=== PATIENT | female | born 1985 | race African-American/Black ===

== ENCOUNTER 2017-11-22 11:05 | Inpatient (IN) | payer SELFPAY ==
[2017-11-22] MEDS ORDERED: ELECTROLYTE-148 SOLN 500 ML IV ONE ×2 (12:15→12:55)
[2017-11-22] MEDS ORDERED: SODIUM CHLORIDE 100 ML IVPB ONE (12:35)
[2017-11-22] MEDS ORDERED: AMPICILLIN SODIUM 2 GM VIAL ONE (12:35)
[2017-11-22] MEDS ORDERED: AMPICILLIN - 2 GM in SODIUM CHLORIDE 100 ML IVPB ONE (12:40)
[2017-11-22] MEDS ORDERED: CITRIC ACID/SODIUM CITRATE 30 ML UNIT-DOSE CUP PO ONE (12:55)
[2017-11-22] MEDS ORDERED: ELECTROLYTE-148 SOLN 1,000 ML IV SCH (13:00)
[2017-11-22 13:02] LABS: BASO % 0.5 % (0-2.0); EOS % 2.7 % (0-4.5); HEMATOCRIT 31.6 % (32.4-45.2); HEMOGLOBIN 10.8 GM/dL (10.7-15.3); LYMPH % 14.4 % (8-40); MCH 31.5 pg (25.7-33.7); MCHC 34.1 g/dl (32.0-36.0); MEAN CELL VOLUME 92.3 fl (80-96); NEUT % 74.4 % (42.8-82.8); PLATELET COUNT 169 K/MM3 (134-434); RBC 3.42 M/mm3 (3.60-5.2); RDW 13.4 % (11.6-15.6); WHITE BLOOD COUNT 7.9 K/mm3 (4.0-10.0)
--- NOTE | 2017-11-22 13:11 | HP ---
Past Medical History - Primary Care Physician PCP:: Lyndsay Cruz - Admission Chief Complaint: 32 yrs , ectopic -1 , 36.2 weeks by sono admitted due to PROM since. 12.15 PM 11/22/17, onset LP since 9.30 AM. previous c/section x2 . uc did not stop after IV hydration. for repeat c/s History of Present Illness: PNC at , [facility] , non compliant only 3 visits in the clinic 06/22. 07/26 & 08/28 . panel 06/22/17 O Pos, hbsag neg, rubella pos, rpr nr, hiv nr, cf screen neg, sickle neg , Pap nilm , gc/ct neg pt had seen MFM at [facility], she was recommended 17, hydroxy progesterone inj , she did not take them . AFP test neg . 07/26/17 sono 19.4 weeks, small ut fibroid 2 cm, cx 2.5 cm afluid was normal sh presnted in l&D on 11/03/17 , IV hydration was given for threatened PTL h/o substance abuse .she stopped cocaine & started Heroin which she takes daily . 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 Weeks Gestation by Dates: 35.5 ...EDC by Dates: 12/22/17 ...EDC by Sono: 12/18/17 (36.2 weeks by sono ) Heme/Onc: Yes: Anemia (non compliant with iron & pnv) Infectious Disease: No: AIDS, STD's, Tuberculosis Psych: Yes: Addictions, Other (declines h/o) Endocrine: No: Hyperthyroidism, Hypothyroidism - Past Surgical History Past Surgical History: Yes: (06/17/2004, 11/01/10) Hx Myomectomy: No Hx Transabdominal Cerclage: No Additional Surgical History: h/o left salpingectomy for ectopic preegn [id number] - Smoking History Smoking history: Current every day smoker (2-3 cig/day) Have you smoked in the past 12 months: Yes - Alcohol/Substance Use Hx Alcohol Use: No History of Substance Use: reports: Cocaine (stopped 4 months ago,), Heroin ( started 3 months ago daily drug tox pos on 11/03/17) Home Medications - Allergies Allergies/Adverse Reactions: Allergies Allergy/AdvReac Type Severity Reaction Status Date / Time No Known Drug Allergies Allergy Verified 11/22/17 11:59 - Home Medications Home Medications: Ambulatory Orders Heroin 1 inhaler IH PRN 11/22/17 Physical Exam - Maternity Vital Signs: Vital Signs Temperature 98.4 F 11/22/17 12:10 Pulse Rate 82 11/22/17 12:10 Respiratory Rate 17 11/22/17 12:10 Blood Pressure 121/74 11/22/17 12:10 O2 Sat by Pulse Oximetry (%) Constitutional: Yes: Well Nourished, Severe Distress Eyes: Yes: WNL HENT: Yes: WNL, Normocephalic Neck: Yes: WNL Cardiovascular: Yes: WNL, Regular Rate and Rhythm Lungs: Clear to auscultation Breast(s): Yes: WNL - Abdominal Exam/OB Fundal Height: 36 Number of Fetuses: Single Presentation: Vertex Contractions: Yes Regularity: Regular (1-2 min) Intensity: Strong Monitor Mode: External Heart Rate (range): 140 Heart Rate Location: Midline Category: I Accelerations: Uniform Decelerations: None - Vaginal Exam/OB Vaginal Bleediing: No Speculum Exam: Yes Dilatation (cm): FT Effacement (%): 70 Amniotic Membrane Status: Ruptured Nitrazine Test: Positive Amniotic Fluid: Yes: Clear - Physical Exam Musculoskeletal: Yes: WNL Extremities: Yes: WNL. No: Calf Tenderness Integumentary: Yes: Incision (pfannensteil scar) Deep Tendon Reflex Grade: Normal +2 ...Motor Strength: WNL Psychiatric: Yes: WNL, Alert, Oriented, Agitated - Labs Lab Results: Laboratory Tests 11/22/17 11/22/17 12:47 12:47 WBC 7.9 RBC 3.42 L Hgb 10.8 Hct 31.6 L MCV 92.3 Plt Count 169 PT with INR 10.00 INR 0.88 PTT (Actin FS) 31.0 Laboratory Tests 11/22/17 11/22/17 11/22/17 12:47 12:47 12:47 PT with INR 10.00 INR 0.88 PTT (Actin FS) 31.0 Sodium Potassium Chloride Carbon Dioxide BUN Creatinine Random Glucose Calcium Total Bilirubin AST ALT Urine Protein Urine Ketones Urine Blood Ur Leukocyte Esterase Urine WBC (Auto) Urine RBC (Auto) Opiates Screen Cocaine Screen RPR Titer Nonreactive HIV 1&2 Antibody Screen Negative HIV P24 Antigen Negative 11/22/17 11/22/17 11/22/17 12:47 13:15 13:15 PT with INR INR PTT (Actin FS) Sodium 140 Potassium 4.0 Chloride 108 H Carbon Dioxide 24 BUN 11 Creatinine 0.6 Random Glucose 79 Calcium 8.1 L Total Bilirubin 0.3 AST 28 ALT 19 Urine Protein Negative Urine Ketones Negative Urine Blood 2+ H Ur Leukocyte Esterase Negative Urine WBC (Auto) 3 Urine RBC (Auto) 8 Opiates Screen Positive Cocaine Screen Positive RPR Titer HIV 1&2 Antibody Screen HIV P24 Antigen Hemorrhage Risk Assessment - Risk Factors Medium Risk Factors: Yes: Prior , uterine surgery,or multiple laparotomies Risk Score: 1 Risk Level: Medium Risk Problem List - Problems (1) with 36 completed weeks gestation Code(s): Z3A.36 - 36 WEEKS GESTATION OF (2) Previous section complicating Code(s): O34.219 - MATERNAL CARE FOR UNSP TYPE SCAR FROM PREVIOUS DEL (3) PROM with onset of labor within 24 hours of rupture Code(s): O42.00 - NELSY ROM, ONSET LABOR W/N 24 HR OF RUPT, UNSP WEEKS OF GEST (4) labor in third trimester Code(s): O60.03 - LABOR WITHOUT DELIVERY, THIRD TRIMESTER Qualifiers: Fetus number: single or unspecified fetus (5) Substance abuse affecting , antepartum Code(s): O99.320 - DRUG USE COMPLICATING , UNSPECIFIED TRIMESTER Assessment/Plan 32 yrs , ectopic -1, previous c/sction x2 presented in labor prom substance abuse & heroin , before that cocaine ,) cigrette smoking
[2017-11-22] MEDS ORDERED: OXYTOCIN 20 UNITS in 0.9% NS 40 UNIT/2,000 ML INFUS.BAG IV ONE (13:14)
[2017-11-22] MEDS ORDERED: ELECTROLYTE-148 SOLN 500 ML IV SCH (13:15)
[2017-11-22 13:19] LABS: INR 0.88 (0.83-1.09)
[2017-11-22 13:21] LABS: ALBUMIN 2.1 g/dl (3.4-5.0); ALK PHOS 137 U/L (45-117); ANION GAP 8 MMOL/L (8-16); BILIRUBIN,TOTAL 0.3 mg/dL (0.2-1.0); BLOOD UREA NITROGEN 11 mg/dL (7-18); CALCIUM 8.1 mg/dL (8.5-10.1); CHLORIDE 108 mmol/L (98-107); CO2 24 mmol/L (21-32); CREATININE 0.6 mg/dL (0.55-1.02); GLUCOSE,RANDOM 79 mg/dL (74-106); SGOT/AST 28 U/L (15-37); SGPT/ALT 19 U/L (13-61); SODIUM 140 mmol/L (136-145); TOT PROT 5.5 g/dl (6.4-8.2)
[2017-11-22] MEDS ORDERED: ONDANSETRON 4 MG/2 ML VIAL IVPUSH PRN (13:25)
[2017-11-22] MEDS ORDERED: morphine SULFATE/Preservative Free 0.5 MG/ML (1cc Syringe) EP ONE (13:25)
[2017-11-22] MEDS ORDERED: ceFAZolin SODIUM 1 GM VIAL ONE ×2 (13:42→22:47)
[2017-11-22] MEDS ORDERED: MIDAZOLAM HCL 2 MG/2 ML SINGLE DOSE VIAL ONE (13:51)
[2017-11-22] MEDS ORDERED: OXYTOCIN 10 UNITS/ML VIAL ONE (13:52)
[2017-11-22 14:25] LABS: ARTERIAL BLD GAS O2 SATURATION 22.8 % (90-98.9); ARTERIAL BLOOD GAS BASE EXCESS -0.1 meq/l (-2-2); ARTERIAL BLOOD GAS PO2 13.5 mmHg (80-100); ARTERIAL BLOOD GAS pH 7.32 (7.35-7.45)
[2017-11-22 14:31] LABS: URINE APPEARANCE CLEAR; URINE BILIRUBIN NEGATIVE (<2.0 mg/dL); URINE COLOR YELLOW; URINE GLUCOSE (UA) NEGATIVE (NEGATIVE); URINE KETONE NEGATIVE (NEGATIVE); URINE LEUK ESTERASE NEGATIVE (NEGATIVE); URINE NITRITE NEGATIVE (NEGATIVE); URINE PROTEIN NEGATIVE (NEGATIVE); URINE UROBILINOGEN NEGATIVE mg/dL (0.2-1.0)
[2017-11-22 14:33] LABS: VENOUS PC02 45.8 mmHg (38-52); VENOUS PH 7.37 (7.32-7.42); VENOUS PO2 20.1 mmHg (28-48)
[2017-11-22 14:38] LABS: EPI CELLS RARE /HPF (FEW); URINE BACTERIA RARE /hpf (NONE SEEN); URINE MUCUS RARE
[2017-11-22 14:42] LABS: METHADONE, UR NEGATIVE ng/ml (CUTOFF=300); PHENCYCLIDINE,URINE NEGATIVE ng/ml (CUTOFF=25); URINE AMPHETAMINES NEGATIVE ng/ml (CUTOFF=500); URINE BARBITURATES NEGATIVE ng/ml (CUTOFF=200); URINE BENZODIAZEPINES NEGATIVE ng/ml (CUTOFF=200)
[2017-11-22 14:43] LABS: COCAINE, UR POSITIVE ng/ml (CUTOFF=300); OPIATES, URI POSITIVE ng/ml (CUTOFF=300)
[2017-11-22] MEDS ORDERED: METHYLERGONOVINE MALEATE 0.2 MG/1 ML AMP IM PRN (14:54)
[2017-11-22] MEDS ORDERED: SENNOSIDES/DOCUSATE COMBO (SENNA PLUS) TABLET (UD) PO PRN (14:54)
[2017-11-22] MEDS ORDERED: OXYTOCIN 20 UNITS in 0.9% NS 20 UNIT/1,000 ML INFUS.BAG IV SCH (15:00)
--- NOTE | 2017-11-22 15:11 | OP ---
Operative Note - Note: Operative Date: 11/22/17 Pre-Operative Diagnosis: 36.2 weeks PROM, , in labor , previous c/section x2 Operation: Repeat LFTC/section Findings: TOB 1.52 PM, Vx LOT Baby Girl, 9/9 , wt 5'13', ht 18" both ovaries normal Dr Dudley present in the room Surgeon: Lyndsay Cruz Printing Press Operator: Nicholas Estrella Anesthesiologist/RETAIL BANKER: Morgan Kraft Anesthesia: Spinal Specimens Removed: cord segment fpr cord blood gas. cord blood. placenta Estimated Blood Loss (mls): 600 Drains, Volume Out (mls): 150 (urine sloane color, dorman output) Fluid Volume Replaced (mls): 1,100 Operative Report Dictated: Yes
[2017-11-22] MEDS: IBUPROFEN 800 MG/8 ML IJ IVPB PRN ×2 (15:15→21:56)
--- NOTE | 2017-11-22 15:24 | PN ---
Delivery - Delivery Section: Repeat, Low Flap Transverse (36.2 weeks, previousc/sx2, prom, labor) EBL (cc): 600 (150 ml ) Delivery, Single - Stages of Labor Time of Delivery: :52 Date Placenta Delivered: 11/22/17 Time Placenta Delivered: : Placenta: Yes: Manual Removal, Uterine Exploration - Condition of Infant Parts Expediter/Histopathology Technician Present: Yes Name: Elizabeth Dudley Infant Gender: Female Weight: 5 lb 13 oz Position: Left, OT Total Hours ROM (Hrs/Mins): 1hr 39 min - 1 Minute Total Score: 9 5 Minutes Total Score: 9 Remarks - Remarks Remarks: 32 yrs , previous c/sx2, ectopic -1 , 36.2 weeks by sono admitted for PROM, & in labor non compliant for visits at [address] [place] [address] Ampicillin 2 gm ivpb given iv Ancef 1gm ivpb prior to incision was given . intraop course uneventful
[2017-11-22 15:32] VITALS: BMI 26.5
--- NOTE | 2017-11-22 17:06 | OP ---
DATE OF OPERATION: 11/22/2017 PREOPERATIVE DIAGNOSES: At 36-2/7 weeks, premature rupture of membranes, in labor, previous section x2. OPERATION DONE: Repeat low-flap transverse section. SURGEON: Lyndsay Cruz MD PLANT FACILITIES TECHNICIAN SURGEON: NICKI Lackey ANESTHESIOLOGIST: Morgan Kraft MD ANESTHESIA: Spinal. FINDINGS: This is a 32-year-old, 9, para 1-1-5-2, previous sections x2, and she has previous history of ectopic and 5 induced abortions. Patient presented with labor contractions since 9 a.m. and she had rupture of membranes in the hospital at 12:15. After IV hydration, she continued to have contractions, and she was fingertip, 70%, -2 station, so patient is taken for a repeat section. Contractions were q. 2 minutes. PROCEDURE: Abdomen was shaved, prepped. Gomez catheter was placed. She was taken to the operating room table. Spinal anesthesia was given and the patient was placed in supine position. Abdomen was painted and draped in usual manner in supine position. Pfannenstiel incision was made. The skin, subcutaneous tissue, anterior rectus sheath was incised transversely. Bleeding points were clamped and cauterized. Rectus muscle was from the rectus sheath. Parietal peritoneum was opened vertically. Low flap parietal peritoneum was incised transversely, then lower uterine segment was incised transversely. Amniotic fluid was clear. Baby was delivered from LOT position at 1:52 p.m., baby girl. Cord was clamped, cut. Baby's was 9 and 9, weight was 5 pounds 13 ounces. Cord segment was sent for cord blood gases, and cord blood was collected. Placenta was removed completely with the membranes. Uterine cavity was cleaned. Then the closure of the uterine incision was done in 2 layers, first layer was a continuous locking with a Biosyn 0 suture, second layer was a was a continuous intermittent locking with a Biosyn 0 suture. Hemostasis was noted. Then closure of the abdomen was done. Sponge, instrument, needle count was correct. The parietal peritoneum was closed with Vicryl 0 suture, muscles were approximated together with interrupted sutures. The anterior rectus sheath was closed with a Vicryl 0 continuous suture. Hemostasis was verified. Subcutaneous tissue was approximated with 2-0 Vicryl and the skin was approximated with 3-0 Vicryl suture. Intradermal sutures were taken. A pressure dressing was given. Blood clots were removed from the vagina. Patient tolerated the procedure well. Estimated blood loss was 600 mL. Intraoperative urine output was 150 mL. She received 1100 of IV fluids, and she received IV Ancef 1 g prior to the incision. Marek [id number]
[2017-11-22] MEDS ORDERED: DEXTROSE 5%-WATER - 50 ML IVPB ONE (22:47)
[2017-11-22] MEDS: CEFAZOLIN 1 GM in DEXTROSE 5%-WATER - 50 ML IVPB SCH (23:07)
[2017-11-23] MEDS: IBUPROFEN 800 MG/8 ML IJ IVPB PRN ×3 (04:03→22:37)
[2017-11-23] MEDS ORDERED: oxyCODONE HCL 5 MG TABLET PO PRN (06:00)
[2017-11-23] MEDS ORDERED: ceFAZolin SODIUM 1 GM VIAL ONE (06:45)
[2017-11-23] MEDS: CEFAZOLIN 1 GM in DEXTROSE 5%-WATER - 50 ML IVPB SCH (06:52)
[2017-11-23 06:54] LABS: BASO % 0.3 % (0-2.0); EOS % 1.3 % (0-4.5); HEMATOCRIT 30.8 % (32.4-45.2); HEMOGLOBIN 10.3 GM/dL (10.7-15.3); LYMPH % 10.5 % (8-40); MCHC 33.5 g/dl (32.0-36.0); MEAN CELL VOLUME 92.5 fl (80-96); MEAN PLT VOLUME 9.3 fl (7.5-11.1); MONO % 6.1 % (3.8-10.2); NEUT % 81.8 % (42.8-82.8); PLATELET COUNT 146 K/MM3 (134-434); RBC 3.33 M/mm3 (3.60-5.2); RDW 13.3 % (11.6-15.6); WHITE BLOOD COUNT 10.8 K/mm3 (4.0-10.0)
[2017-11-23] MEDS: SIMETHICONE 80 MG TAB.CHEW (FP) PO PRN ×3 (08:13→20:40)
[2017-11-23] MEDS: ACETAMINOPHEN 325 MG TABLET (FP) PO PRN ×3 (08:14→20:40)
--- NOTE | 2017-11-23 08:18 | PN ---
Progress Note (short form) - Note Progress Note: pod 1 c/o low abdominal pain , no excess vaginal bleeding CBC, BMP 11/23/17 06:00 11/22/17 12:47 Last Vital Signs Temp Pulse Resp BP Pulse Ox 97.8 F 72 20 124/78 100 11/23/17 04:00 11/23/17 04:00 11/23/17 06:00 11/23/17 04:00 11/22/17 15:30 abdomen soft, no distension, no cva incision dry, clean no calf tenderness lochia mild plan ambulate , pain management , advance diet
--- NOTE | 2017-11-23 08:28 | PN ---
Progress Note (short form) - Note Progress Note: Anesthesia Post op/pain Pt seen and examined S;Alert and awake comfortable O: Vital Signs Temperature 97.8 F 11/23/17 04:00 Pulse Rate 72 11/23/17 04:00 Respiratory Rate 20 11/23/17 06:00 Blood Pressure 124/78 11/23/17 04:00 O2 Sat by Pulse Oximetry (%) 100 11/22/17 15:30 CBC, BMP 11/23/17 06:00 11/22/17 12:47 A/P Current Active Problems PROM with onset of labor within 24 hours of rupture (Acute) with 36 completed weeks gestation (Acute) labor in third trimester (Acute) Previous section complicating (Acute) Substance abuse affecting , antepartum (Acute) s/p c section Doing well post op Continue current care Michael Moss MD
[2017-11-23] MEDS: ENOXAPARIN NA (PORCINE) 40 MG/0.4 ML DISP.SYRIN SQ SCH (10:14)
[2017-11-23] MEDS: PRENATAL VITAMINS W/ FOLIC ACID TABLET (FP) PO SCH (10:14)
[2017-11-23] MEDS ORDERED: BISACODYL 10 MG SUPP.RECT RC PRN (14:54)
[2017-11-23] MEDS: oxyCODONE HCL 5 MG TABLET PO PRN ×2 (16:23→20:41)
[2017-11-23] MEDS ORDERED: guaiFENesin 200 MG/10 ML 10 ML UNIT-DOSE CUPS PO PRN (19:27)
[2017-11-23] MEDS: FERROUS SO4 325 MG TABLET (FP) PO SCH (21:40)
[2017-11-24] MEDS: SIMETHICONE 80 MG TAB.CHEW (FP) PO PRN ×5 (02:24→23:39)
[2017-11-24] MEDS: ACETAMINOPHEN 325 MG TABLET (FP) PO PRN ×5 (02:24→23:39)
[2017-11-24] MEDS: oxyCODONE HCL 5 MG TABLET PO PRN ×5 (02:25→23:39)
--- NOTE | 2017-11-24 07:24 | PN ---
Progress Note, Physician Chief Complaint: tHIS IS A 32 YO FEMALE 3 DAY POST C SECTION IN ROOM 310-01 IS SLEEPING IN HER ROOM WITH MALE IN CHAIR ALONGSIDE IN A CHAIR. sHE DENIES PAST PSYCH HISTORY BUT HAS SIGNIFICANT HISTORY OF SUBSTANCE USE, TREATED AT [facility]. uRINE TOX IS POSITIVE FOR OPIATES, COCAINE. SHE HAS ON 11-22, POSSIBLE 2 MORE DAYS IN PATIENT. CURRENTLY ON OXYCODONE 10MG FOR PAIN EVERY 4 HOURS, LAST DOSE AT 4AM. NOT ON ANY PSYCHIATRIC MEDICATION, SPOKE WITH alfonso Gordon ON THE UNIT, NO BEHAVIOURAL DISTURBANCE. cLIENT IS ALERT ORIENTATED BY 3. CLIENT IS A MODERATE CIGARETTE SMOKER, 1/2 PACK DAY. sHE HAS BEEN NOT ADHERENT WITH VISITS. bABY GIRL IN SPECIAL CARE UNIT AT [facility]. - Current Medication List Current Medications: Active Medications Acetaminophen (Tylenol -) 650 mg PO Q4H PRN PRN Reason: PAIN LEVEL 1-5 Last Admin: 11/24/17 02:24 Dose: 650 mg Bisacodyl (Dulcolax Suppository -) 10 mg RC PRN PRN PRN Reason: CONSTIPATION Diphenhydramine HCl (Benadryl Injection -) 25 mg IVPUSH Q4H PRN PRN Reason: Pruritis Enoxaparin Sodium (Lovenox -) 40 mg SQ DAILY [facility] Last Admin: 11/23/17 10:14 Dose: 40 mg Ferrous Sulfate (Feosol -) 325 mg PO BID [facility] Last Admin: 11/23/17 21:40 Dose: 325 mg Guaifenesin (Robitussin -) 10 ml PO Q6H PRN PRN Reason: COUGH Last Admin: 11/23/17 20:46 Dose: 10 ml Ibuprofen (Motrin -) 600 mg PO Q4H PRN PRN Reason: PAIN LEVEL 1 - 3 Ibuprofen (Caldolor Injection -) 800 mg IVPB Q8H PRN PRN Reason: PAIN LEVEL 1-5 Last Admin: 11/23/17 22:37 Dose: 800 mg Methylergonovine Maleate (Methergine Injection -) 0.2 mg IM Q4H PRN PRN Reason: Excessive Bleeding (L&D) Ondansetron HCl (Zofran Injection) 4 mg IVPUSH Q4H PRN PRN Reason: NAUSEA Oxycodone HCl (Roxicodone -) 5 mg PO Q4H PRN PRN Reason: PAIN LEVEL 4 - 6 Last Admin: 11/23/17 08:13 Dose: 5 mg Oxycodone HCl (Roxicodone -) 10 mg PO Q4H PRN PRN Reason: PAIN LEVEL 7 - 10 Last Admin: 11/24/17 02:25 Dose: 10 mg Multivit/Folic Acid/Iron ( Vitamins (Sjr) -) 1 tab PO DAILY [facility] Last Admin: 11/23/17 10:14 Dose: 1 tab Senna/Docusate Sodium (Pericolace -) 2 tablet PO HS PRN PRN Reason: CONSTIPATION Last Admin: 11/23/17 20:38 Dose: 2 tablet Simethicone (Mylicon -) 80 mg PO Q4H PRN PRN Reason: GAS Last Admin: 11/24/17 02:24 Dose: 80 mg - Objective Vital Signs: Vital Signs Temperature 98.6 F 11/23/17 22:00 Pulse Rate 59 L 11/23/17 22:00 Respiratory Rate 18 11/23/17 22:00 Blood Pressure 117/71 11/23/17 22:00 O2 Sat by Pulse Oximetry (%) 100 11/22/17 15:30 Labs: CBC, BMP 11/23/17 06:00 11/22/17 12:47 INR, PTT INR 0.88 (0.83-1.09) 11/22/17 12:47 Problem List - Problems (1) Substance abuse affecting , antepartum Code(s): O99.320 - DRUG USE COMPLICATING , UNSPECIFIED TRIMESTER
[2017-11-24] MEDS: FERROUS SO4 325 MG TABLET (FP) PO SCH ×2 (09:40→22:03)
[2017-11-24] MEDS: ENOXAPARIN NA (PORCINE) 40 MG/0.4 ML DISP.SYRIN SQ SCH (09:40)
[2017-11-24] MEDS: PRENATAL VITAMINS W/ FOLIC ACID TABLET (FP) PO SCH (09:40)
[2017-11-24] MEDS: IBUPROFEN 600 MG TABLET (FP) PO PRN ×2 (10:06→20:07)
--- NOTE | 2017-11-24 10:28 | PN ---
Post Progress Note Post Day: 2 Type of Delivery: Repeat C/S Vital Signs: Vital Signs Temperature 98.6 F 11/23/17 22:00 Pulse Rate 59 L 11/23/17 22:00 Respiratory Rate 18 11/23/17 22:00 Blood Pressure 117/71 11/23/17 22:00 O2 Sat by Pulse Oximetry (%) 100 11/22/17 15:30 Breast Exam: Yes: Soft Uterus: Yes: Fundus Firm Incision: Yes: Dressing dry and intact Abdomen/GI: Yes: Abdomen soft Lochia: Yes: Rubra Lochia, amount: Small Extremities: Yes: Calves non-tender Perineum: Yes: Intact Activity: Ambulating - Labs Labs: CBC WBC 10.8 K/mm3 (4.0-10.0) H 11/23/17 06:00 RBC 3.33 M/mm3 (3.60-5.2) L 11/23/17 06:00 Hgb 10.3 GM/dL (10.7-15.3) L 11/23/17 06:00 Hct 30.8 % (32.4-45.2) L 11/23/17 06:00 MCV 92.5 fl (80-96) 11/23/17 06:00 MCH 31.0 pg (25.7-33.7) 11/23/17 06:00 MCHC 33.5 g/dl (32.0-36.0) 11/23/17 06:00 RDW 13.3 % (11.6-15.6) 11/23/17 06:00 Plt Count 146 K/MM3 (134-434) 11/23/17 06:00 MPV 9.3 fl (7.5-11.1) 11/23/17 06:00 Absolute Neuts (auto) 8.8 K/mm3 (1.5-8.0) H 11/23/17 06:00 Neutrophils % 81.8 % (42.8-82.8) 11/23/17 06:00 Lymphocytes % 10.5 % (8-40) D 11/23/17 06:00 Monocytes % 6.1 % (3.8-10.2) 11/23/17 06:00 Eosinophils % 1.3 % (0-4.5) 11/23/17 06:00 Basophils % 0.3 % (0-2.0) 11/23/17 06:00 Nucleated RBC % 0 % (0-0) 11/23/17 06:00 Assessment/Plan pain control dc dressing oob
[2017-11-25] MEDS: oxyCODONE HCL 5 MG TABLET PO PRN ×3 (04:23→16:53)
[2017-11-25] MEDS: SIMETHICONE 80 MG TAB.CHEW (FP) PO PRN ×3 (04:23→16:53)
[2017-11-25] MEDS: ACETAMINOPHEN 325 MG TABLET (FP) PO PRN ×3 (04:23→16:53)
[2017-11-25 07:24] LABS: BASO % 0.5 % (0-2.0); EOS % 3.1 % (0-4.5); HEMOGLOBIN 9.3 GM/dL (10.7-15.3); LYMPH % 15.1 % (8-40); MCH 31.1 pg (25.7-33.7); MCHC 33.4 g/dl (32.0-36.0); MEAN PLT VOLUME 9.4 fl (7.5-11.1); MONO % 6.4 % (3.8-10.2); NEUT % 74.9 % (42.8-82.8); PLATELET COUNT 173 K/MM3 (134-434); RBC 3.01 M/mm3 (3.60-5.2); RDW 13.3 % (11.6-15.6); WHITE BLOOD COUNT 9.4 K/mm3 (4.0-10.0)
[2017-11-25] MEDS: IBUPROFEN 600 MG TABLET (FP) PO PRN ×2 (08:19→19:40)
[2017-11-25] MEDS: ENOXAPARIN NA (PORCINE) 40 MG/0.4 ML DISP.SYRIN SQ SCH (09:15)
[2017-11-25] MEDS: FERROUS SO4 325 MG TABLET (FP) PO SCH ×2 (09:16→21:06)
[2017-11-25] MEDS: PRENATAL VITAMINS W/ FOLIC ACID TABLET (FP) PO SCH (09:16)
--- NOTE | 2017-11-25 11:49 | PN ---
Post Progress Note - Subjective Subjective: Pt feeling well. Tolerating diet. Ambulating. Denies n/v Post Day: 3 Type of Delivery: Repeat C/S Vital Signs: Vital Signs Temperature 98.8 F 11/25/17 08:28 Pulse Rate 57 L 11/25/17 08:28 Respiratory Rate 20 11/25/17 08:28 Blood Pressure 130/78 11/25/17 08:28 O2 Sat by Pulse Oximetry (%) 100 11/22/17 15:30 Breast Exam: Yes: Soft Uterus: Yes: Fundus below umbilicus Incision: Yes: Sutures intact Abdomen/GI: Yes: Abdomen soft Lochia: Yes: Rubra Lochia, amount: Small Extremities: Yes: Calves non-tender - Labs Labs: CBC WBC 9.4 K/mm3 (4.0-10.0) 11/25/17 06:55 RBC 3.01 M/mm3 (3.60-5.2) L 11/25/17 06:55 Hgb 9.3 GM/dL (10.7-15.3) L 11/25/17 06:55 Hct 28.0 % (32.4-45.2) L 11/25/17 06:55 MCV 93.0 fl (80-96) 11/25/17 06:55 MCH 31.1 pg (25.7-33.7) 11/25/17 06:55 MCHC 33.4 g/dl (32.0-36.0) 11/25/17 06:55 RDW 13.3 % (11.6-15.6) 11/25/17 06:55 Plt Count 173 K/MM3 (134-434) 11/25/17 06:55 MPV 9.4 fl (7.5-11.1) 11/25/17 06:55 Absolute Neuts (auto) 7.1 K/mm3 (1.5-8.0) 11/25/17 06:55 Neutrophils % 74.9 % (42.8-82.8) 11/25/17 06:55 Lymphocytes % 15.1 % (8-40) D 11/25/17 06:55 Monocytes % 6.4 % (3.8-10.2) 11/25/17 06:55 Eosinophils % 3.1 % (0-4.5) D 11/25/17 06:55 Basophils % 0.5 % (0-2.0) 11/25/17 06:55 Nucleated RBC % 0 % (0-0) 11/25/17 06:55 Problem List - Problems (1) Previous section complicating Code(s): O34.219 - MATERNAL CARE FOR UNSP TYPE SCAR FROM PREVIOUS DEL Assessment/Plan Pt POD#3 s/p rpt c/s doing well ambulation encouraged plan for discharge tomorrow if remains stable plan for postop check in 1 week
[2017-11-26] MEDS: ACETAMINOPHEN 325 MG TABLET (FP) PO PRN ×3 (00:07→10:23)
[2017-11-26] MEDS: oxyCODONE HCL 5 MG TABLET PO PRN ×3 (00:07→10:24)
[2017-11-26] MEDS: SIMETHICONE 80 MG TAB.CHEW (FP) PO PRN ×2 (00:07→06:08)
[2017-11-26] MEDS: IBUPROFEN 600 MG TABLET (FP) PO PRN (01:55)
[2017-11-26] MEDS: PRENATAL VITAMINS W/ FOLIC ACID TABLET (FP) PO SCH (09:47)
[2017-11-26] MEDS: FERROUS SO4 325 MG TABLET (FP) PO SCH (09:47)
[2017-11-26] MEDS: ENOXAPARIN NA (PORCINE) 40 MG/0.4 ML DISP.SYRIN SQ SCH (09:47)
[2017-11-26 09:51] VITALS: BP 107/65; PULSE 76; TEMP 98.4
--- NOTE | 2017-11-27 18:40 | DS ---
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 No: Distention Renal/: Yes: WNL, Other (voiding without difficulty). No: CVA Tenderness - Left, CVA Tenderness - Right ....Post : Yes: Uterus firm, Uterus non-tender, Slight lochia rubra Breast(s): Yes: WNL (full. not breast feeding) Musculoskeletal: Yes: WNL Extremities: Yes: WNL. No: Calf Tenderness Integumentary: Yes: Tattoos Wound/Incision: Yes: Clean/Dry, Well Approximated, Sutures Intact (intradermal sutures), Steri Strips, Open to air. No: Reddened, Bleeding, Excoriated Neurological: Yes: WNL, Alert, Oriented ...Motor Strength: WNL Psychiatric: Yes: WNL, Alert, Oriented Labs: CBC, BMP 11/25/17 06:55 11/22/17 12:47 Laboratory Tests 11/22/17 13:15 Opiates Screen Positive Cocaine Screen Positive Delivery - Delivery Section: Repeat, Low Flap Transverse (36.2 weeks, previousc/sx2, prom, labor) Type of Anesthesia: Spinal EBL (cc): 600 Delivery, Single - Stages of Labor Date 2nd Stage Initiated: 11/22/17 Time 2nd Stage Initiated: 09:30 Date of Delivery: 11/22/17 Time of Delivery: 13:52 Time Placenta Delivered: 13:54 Placenta: Yes: Manual Removal, Uterine Exploration - Condition of Infant Rack Puncher/[facility] Present: Yes Name: Elizabeth Dudley Gender: Female Weight: 5 lb 13 oz Position: Left, OT Total Hours ROM (Hrs/Mins): 1 hour 39 minutes - 1 Minute Total Score: 9 5 Minutes Total Score: 9 - Feeding Plan Initial Plan: Elected not to breastfeed exclusively throughout hospitalization Remarks - Remarks Remarks: 32 yrs , previous c/sx2, ectopic -1 , 36.2 weeks by sono admitted for PROM, & in labor non compliant for visits at [address] [place] [address] Ampicillin 2 gm ivpb given iv Ancef 1gm ivpb prior to incision was given . intraop course uneventful . post op course uneventful pt was discharged on 11/26/17 by [facility] Discharge Summary Reason For Visit: Condition: Stable - Instructions Diet, Activity, Other Instructions: Post Instructions DIET: Continue good diet high in protein, calcium, and iron rich foods. Drink at least eight (8) glasses of water daily in addition to other fluids. ___ Regular diet MEDICATIONS: Continue vitamins and iron as previously directed. Motrin and Tylenol may be taken for minor discomfort. ACTIVITY: Mild to moderate exercise may be started in two (2) weeks. Take frequent rest periods. Resume normal activity after six (6) week check up. WOUND CARE OF OPERATIVE SITE: Continue use of perineal bottle until vaginal discharge stops. Keep area clean. Shower daily. Keep abdominal wound dry. Report any drainage or redness to physician. Tub baths, tampons and douches are not permitted for [address] Breast feeding & or Bottle feeding BREAST CARE: (For those that are not breast feeding): If engorgement occurs: Wear tight fitting bra. Take Tylenol or Motrin for pain. Apply cold packs (ice in bags to each breast ) FAMILY PLANNING: There are many control alternatives to pursue and they should be discussed at your first office visit. You may resume sexual activity after your six (6) week check up. (Remember, breast feeding is not a contraceptive) NEXT PHYSICIAN APPOINTMENT: Be certain to call for a one (1) week appointment, unless otherwise directed. Call Clinic or got to Emergency Dept if you have any of the following: Heavy vaginal bleeding Painful urination Leg pain Unusual odor noted to vaginal bleeding High fever Red streaking noted on breast Referrals: Lyndsay Cruz MD [Staff Physician] - Disposition: HOME - Home Medications Comprehensive Discharge Medication List: Ambulatory Orders Heroin 1 inhaler IH PRN 11/22/17 Acetaminophen [Tylenol .Regular Strength -] 500 mg PO Q4H PRN #30 tablet Ferrous Sulfate [Feosol] 325 mg PO BID #60 tab 11/24/17 Ibuprofen [Motrin -] 600 mg PO Q4H PRN #30 tablet 11/24/17 Vitamins (Sjr) - 1 tab PO DAILY #30 tablet 11/24/17
--- NOTE | 2017-11-28 16:36 | PATH ---
Surgical Pathology Report Patient Name: VEE NORMAN Med. Rec. #: [id number] /Age/Gender: 1985 (Age: 32) / F Account: [id number] Location: [facility] OBS/PARAEDUCATOR Taken: 11/22/2017 Received: 11/23/2017 Reported: 11/28/2017 Physicians: Lyndsay Cruz M.D. Specimen(s) Received PLACENTA Clinical History , 36.2 weeks' gestation, history of substance abuse Final Diagnosis PLACENTA: THIRD TRIMESTER PLACENTA. TRIVASCULAR CORD. MEMBRANES WITH NO DIAGNOSTIC ABNORMALITIES. Electronically Signed Judi Sloan M.D. Gross Description The specimen is received fresh labeled placenta and is a 482 gram, 21.0 x 19.0 x 1.7 cm. placenta with attached membranes and umbilical cord. The attached membranes are zuniga, translucent with focal opacities and insert marginally. The umbilical cord measures 13 cm. in length and averages 1 cm. in diameter. The cord inserts eccentrically, 6 cm. to the nearest margin. No true knots or strictures are identified. Cut surface of the umbilical cord reveals 3 vessels. The surface is wolfe-blue with minimal fibrin deposition and appropriate caliber vessels. The maternal surface is red-brown with focal defects. Sectioning reveals red-brown, spongy parenchyma. No lesions are identified. Diffusion Operator sections are submitted in three cassettes as follows: 1- membrane rolls and umbilical cord; 2-3- full thickness sections of placenta. 11/27/2017 [facility]/27/2017
== END 2017-11-26 12:43 | disposition home or self-care (01) | DRG 540 ==
LOC: JDEL 11:05 → JLDR 12:35 → J3W 16:13
PROVIDERS: ADMIT Obstetrics & Gynecology; ATTEND Obstetrics & Gynecology
PROC: 10D00Z1 Extraction of Products of Conception, Low, Open Approach (ICD-10-PCS; principal; 2017-11-22)
DX: O42.013 Preterm premature rupture of membranes, onset of labor within 24 hours of rupture, third trimester (principal); O34.211 Maternal care for low transverse scar from previous cesarean delivery; O99.324 Drug use complicating childbirth; F11.10 Opioid abuse, uncomplicated; F14.10 Cocaine abuse, uncomplicated; O99.334 Smoking (tobacco) complicating childbirth; F17.210 Nicotine dependence, cigarettes, uncomplicated; Z3A.36 36 weeks gestation of pregnancy; Z37.0 Single live birth
CPT/HCPCS: 36415; 36600; 71046-TC-FY; 80053; 80307; 81003; 81015; 82803; 85025; 85610; 85730; 86593; 86850; 86900; 86901; 87389; 88307-TC; 94010